=== PATIENT | male | born 1995 | race Caucasian/White ===

== ENCOUNTER 2016-07-12 01:22 | Emergency (ER) | payer SELFPAY ==
[~2016-07-12] VITALS: Ht 182.9 cm; Wt 64.9 kg
[2016-07-12] MEDS ORDERED: NKM (01:55)
[2016-07-12] MEDS ORDERED: TdaP Vaccine 0.5ml Syr IM ONE (02:30)
[2016-07-12] MEDS ORDERED: Lidocaine 1% Plain 30 ml INJ ONE ×2 (02:40→02:45)
[2016-07-12] MEDS ORDERED: Bacitracin Oint UD TOPIC ONE (03:27)
[2016-07-12 03:40] VITALS: BP 127/67
[2016-07-12 03:45] VITALS: BP 141/83
--- NOTE | 2016-07-12 06:39 | Emergency Room Report ---
History of Present Illness General Chief Complaint: Laceration Source: Patient Present Illness HPI 20-year-old male presents to ED with laceration to his right index finger. States tonight he accidentally cut his finger on a piece of glass. Denies any other injuries. Tetanus unknown. Denies pain. No other aggravating relieving factors. Denies any other associated symptoms Allergies: Coded Allergies: No Known Allergies (Unverified , 07/12/16) Patient History Past Surgical History: none Pertinent Family History: none Social History: Denies: alcohol use, drug use, smoking Immunizations: UTD Reviewed Nursing Documentation: PMH: Agreed, PSxH: Agreed Nursing Documentation-PMH Past Medical History: No Stated History Review of Systems All Other Systems: negative except mentioned in HPI Physical Exam Vital Signs Date Time Temp Pulse Resp B/P Pulse Ox O2 Delivery O2 Flow Rate FiO2 07/12/16 01:50 97.9 75 18 141/83 99 Room Air Sp02 EP Interpretation: reviewed, normal General Appearance: no apparent distress, alert, GCS 15, non-toxic Head: normocephalic Eyes: bilateral eye PERRL, bilateral eye normal inspection ENT: normal ENT inspection Neck: normal inspection Respiratory: normal inspection Cardiovascular #1: normal inspection Gastrointestinal: normal inspection Rectal: deferred Genitourinary: no CVA tenderness Musculoskeletal: normal inspection Neurologic: alert, oriented x3, responsive, motor strength/tone normal, sensory intact, speech normal Psychiatric: normal inspection, judgement/insight normal Skin: laceration - 2cm flap laceration to R index finger Lymphatic: normal inspection Procedures Laceration/Wound Repair Laceration/Wound Repair : Consent: Emergent Wound Location: upper extremity - R index finger Wound's Depth, Shape: flap Wound Explored: clean Betadine Prep?: Yes Anesthesia: 1% Lidocaine Wound Debrided: minimal Wound Repaired With: sutures Suture Size/Type: 5:0, proline Layer Closure?: No Sterile Dressing Applied?: Yes Splint Applied?: No Sling Applied?: No Patient Tolerated: Well Complications: None Medical Decision Making Diagnostic Impression: Primary Impression: Laceration ER Course Hospital Course 20-year-old M presents to ED s/p laceration R index finger with broken glass Clinical course Patient placed on stretcher. After initial history and physical I ordered tetanus shot. Anesthesia provided with lidocaine. Laceration repaired w/o complication. Dressing applied. Diagnosis - laceration Stable and discharged to home. wound Care instructions given. Followup with PMD in 12-14 days for suture removal. Return to ED if any signs of infection develop Last Vital Signs Date Time Temp Pulse Resp B/P Pulse Ox O2 Delivery O2 Flow Rate FiO2 07/12/16 03:45 97.9 18 141/83 99 Room Air 07/12/16 03:40 71 Status: improved Disposition: HOME, SELF-CARE Condition: Stable Referrals: NOT CHOSEN IPA/MD,REFERRING (PCP) Patient Instructions: Laceration Care, Adult Additional Instructions: return to ED in 12-14 days for suture removal PARISH BROOKS M.D. July 12, 2016 06:39
== END 2016-07-12 03:45 | disposition home or self-care (01) ==
LOC: EMR 02:05
DX: S61.210A Laceration without foreign body of right index finger without damage to nail, initial encounter (principal); W25.XXXA Contact with sharp glass, initial encounter; Y92.89 Other specified places as the place of occurrence of the external cause; Z23 Encounter for immunization
CPT/HCPCS: 12001; 90471; 90715; 96372; 99284; J2001